=== PATIENT | female | born 1950 | race Hispanic/Latino ===

== ENCOUNTER 2017-08-07 07:09 | Day surgery (SDC) | payer MEDICARE ==
[2017-08-06 10:15] VITALS: BP 118/61
[2017-08-06 10:42] LABS: INR 0.96 (0.85-1.15); PARTIAL THROMBOPLASTIN TIME 29.8 SEC (26.3-35.5); PROTHROMBIN TIME 10.1 SEC (9.6-11.6)
[~2017-08-07] VITALS: Ht 156.2 cm; Wt 59.1 kg
[2017-08-07 07:14] VITALS: BP 106/55
[2017-08-07] MEDS ORDERED: LIDOCAINE HCL 1% MDV 50ML VIAL ONE (07:29)
[2017-08-07] MEDS ORDERED: HEPARIN SODIUM 1000UNIT/ML 10ML VIAL ONE (07:29)
[2017-08-07] MEDS ORDERED: LIDOCAINE 1%-EPI 1:100,000 20 ML VIAL IJ ONE (07:29)
[2017-08-07] MEDS ORDERED: SODIUM CHLORIDE 0.9% 1000ML 1,000 ML IV ONE (07:42)
[2017-08-07] MEDS ORDERED: FENTANYL CITRATE PF 50 MCG/1 ML 2ML VIAL ONE (08:17)
[2017-08-07] MEDS ORDERED: MIDAZOLAM HCL 1 MG/ML 2ML VIAL ONE (08:17)
[2017-08-07] MEDS ORDERED: OCTYL 2-CYANOACRYLATE 1 EACH TP ONE (08:36)
[2017-08-07 09:05] VITALS: BP 103/52
[2017-08-07 09:20] VITALS: BP 95/49
[2017-08-07 09:35] VITALS: BP 107/52
[2017-08-07 09:50] VITALS: BP 108/59
== END 2017-08-07 10:10 | disposition home or self-care (01) ==
LOC: DAH 07:09
PROVIDERS: ATTEND Internal Medicine Hematology & Oncology
DX: Z45.2 Encounter for adjustment and management of vascular access device (principal); Z98.890 Other specified postprocedural states; Z80.3 Family history of malignant neoplasm of breast; Z80.0 Family history of malignant neoplasm of digestive organs
CPT/HCPCS: 36415; 36590; 77001; 85610; 85730; A4606; J1644; J2250; J3010; J3490 ×2; J7030; 99152; 99153

== ENCOUNTER → 2021-07-13 | Outpatient (CLI) | payer OTHER | END | disposition home or self-care (01) | LOC: CANPRESDC → DAH 10:00 → EDSTATUS 07-18 09:00 | PROVIDERS: ATTEND Internal Medicine | DX: Z01.812 Encounter for preprocedural laboratory examination (principal); Z12.11 Encounter for screening for malignant neoplasm of colon; Z85.028 Personal history of other malignant neoplasm of stomach; Z20.822 Contact with and (suspected) exposure to COVID-19 | CPT/HCPCS: 87635; C9803 ==

== ENCOUNTER 2023-06-19 17:45 | Emergency (ER) | payer OTHER ==
[~2023-06-19] VITALS: Ht 157.5 cm; Wt 59.4 kg
[2023-06-19] MEDS ORDERED: IBUPROFEN 600 MG TABLET PO STA (19:30)
[2023-06-19] MEDS ORDERED: IBUPROFEN 200 MG TAB ONE (19:32)
[2023-06-19] MEDS ORDERED: IBUPROFEN 400 MG TABLET ONE (19:32)
[2023-06-19 19:36] VITALS: BP 138/74; PULSE 78; RESP 18; O2SAT 100
== END 2023-06-19 19:37 | disposition home or self-care (01) ==
LOC: EDH 17:45
DX: M25.562 Pain in left knee (principal)
CPT/HCPCS: 73562